=== PATIENT | female | born 1995 | race Caucasian/White ===

== ENCOUNTER 2022-09-22 21:29 | Inpatient (IN) | payer BC ==
[2022-09-22] MEDS ORDERED: LIDOCAINE 0.5% (PF) 5 MG/ML (50 ML SDV) SQ PRN (22:03)
[2022-09-22] MEDS ORDERED: TERBUTALINE 1 MG/ML VIAL SQ PRN (22:03)
[2022-09-22 22:11] LABS: Basophils % (A) 0 %; Eosinophils # (A) 0.1 k/uL (0-0.7); Eosinophils % (A) 1 %; HCT 30.8 % (34.0-46.0); HGB 10.4 gm/dL (11.4-16.0); Lymphocytes # (A) 1.7 k/uL (1.0-4.8); Lymphocytes % (A) 17 %; MCH 28.9 pg (25.0-35.0); MCHC 33.7 g/dL (31.0-37.0); MCV 85.6 fL (80.0-100.0); Monocytes # (A) 0.5 k/uL (0-1.0); Monocytes % (A) 5 %; Neutrophils # (A) 7.4 k/uL (1.3-7.7); Neutrophils % (A) 76 %; Platelet Count 242 k/uL (150-450); RDW 13.6 % (11.5-15.5); WBC 9.8 k/uL (3.8-10.6)
[2022-09-22] MEDS ORDERED: OXYTOCIN 30 UNITS/500 ML NS 30 UNIT in SALINE 1 500ML.BAG IV SCH (22:15)
[2022-09-22] MEDS: LACTATED RINGERS 1,000 ML IV SCH (22:52)
--- NOTE | 2022-09-23 01:38 | P.HPOB ---
History of Present Illness H&P Date: 09/23/22 Chief Complaint: Spontaneous rupture membranes 27-year-old presents at 39 weeks and 3 days with spontaneous rupture membranes. Her cervix was 1cm dilated, 80% effaced, -2 station. She was not fede. heart tones 140 with moderate variability and reactive. Review of Systems All systems: negative Constitutional: Denies chills, Denies fever Eyes: denies blurred vision, denies pain Ears, nose, mouth and throat: Denies headache, Denies sore throat Cardiovascular: Denies chest pain, Denies shortness of breath Respiratory: Denies cough Gastrointestinal: Denies abdominal pain, Denies diarrhea, Denies nausea, Denies vomiting Genitourinary: Denies dysuria, Denies hematuria Musculoskeletal: Denies myalgias Integumentary: Denies pruritus, Denies rash Neurological: Denies numbness, Denies weakness Psychiatric: Denies anxiety, Denies depression Endocrine: Denies fatigue, Denies weight change Past Medical History Past Medical History: No Reported History History of Any Multi-Drug Resistant Organisms: None Reported Additional Past Surgical History / Comment(s): wisdom teeth Past Anesthesia/Blood Transfusion Reactions: No Reported Reaction Past Psychological History: ADD/ADHD, Depression Smoking Status: Current every day smoker Past Drug Use History: None Reported Medications and Allergies Home Medications Medication Instructions Recorded Confirmed Type Vit No.179/Iron/Folic 1 each PO 09/22/22 History [ Tablet] Allergies Allergy/AdvReac Type Severity Reaction Status Date / Time Penicillins Allergy Unknown Verified 09/22/22 21:31 Exam Osteopathic Statement: *. No significant issues noted on an osteopathic structural exam other than those noted in the History and Physical/Consult. Vital Signs Temp Pulse Resp BP Pulse Ox 09/22/22 22:02 98.0 F 82 16 116/56 98 09/22/22 21:30 98.0 F 82 16 116/56 98 Intake and Output 09/22/22 09/22/22 09/23/22 14:59 22:59 06:59 Other: Weight 114.759 kg Heart: Regular rate and rhythm Lungs: Clear to auscultation bilaterally Abdomen: Soft, nontender Extremities: Negative Homans sign Results Result Diagrams: 09/22/22 22:07 Abnormal Lab Results - Last 24 Hours (Table) 01/30/23 Range/Units 22:07 RBC 3.60 L (3.80-5.40) m/uL Hgb 10.4 L (11.4-16.0) gm/dL Hct 30.8 L (34.0-46.0) % Assessment and Plan (1) Spontaneous rupture of membranes Current Visit: Yes Status: Acute Code(s): [id number] - SNOMED Code(s): 1 95792061 (2) 39 weeks gestation of Current Visit: Yes Status: Acute Code(s): Z3A.39 - 39 WEEKS GESTATION OF SNOMED Code(s): 91420876 Plan: 1. Admit to family place 2. Pitocin augmentation 3. Anticipate normal vaginal delivery
[2022-09-23] MEDS ORDERED: ROPIVACAINE 5 MG/ML 20 ML AMPULE ONE (02:40)
[2022-09-23] MEDS ORDERED: SODIUM CHLORIDE 0.9% 100 ML BAG ONE (02:40)
[2022-09-23] MEDS ORDERED: fentaNYL (PF) 50 MCG/ML 5 ML AMP ONE (02:40)
[2022-09-23] MEDS: LACTATED RINGERS 1,000 ML IV SCH ×4 (02:53→17:18)
[2022-09-23] MEDS ORDERED: ROPIVACAINE 100 MG, fentaNYL (PF). 200 MCG in SODIUM CHLORIDE 0.9% 76 ML EPIDURAL ONE (03:12)
[2022-09-23] MEDS ORDERED: CITRIC ACID-SODIUM CITRATE 15 ML CUP PO ONE (06:55)
[2022-09-23] MEDS ORDERED: KETOROLAC 30 MG/ML 1 ML VIAL ONE (07:40)
[2022-09-23] MEDS ORDERED: NALBUPHINE 10 MG/ML (1 ML AMP) ONE (07:40)
[2022-09-23] MEDS ORDERED: OXYTOCIN 30 UNITS/500 ML NS BAG IV ONE (07:40)
[2022-09-23] MEDS ORDERED: ONDANSETRON 4 MG/2 ML VIAL ONE (07:40)
[2022-09-23] MEDS ORDERED: MORPHINE SULFATE (PF) 0.3 MG/0.3 ML SYR ONE (07:40)
--- NOTE | 2022-09-23 08:28 | P.OP ---
Date of Procedure: 09/23/22 Preoperative Diagnosis: 1. at 39 weeks 5 days 2. category 2 heart tones 3. Meconium stained fluid Postoperative Diagnosis: same Procedure(s) Performed: primary low transverse Anesthesia: epidural Surgeon: Fany Grant [employer] Captain #1: Surjit Marquez Estimated Blood Loss (ml): 300 IV fluids (ml): 500 Urine output (ml): 200 Pathology: none sent Condition: stable Disposition: floor Indications for Procedure: 27-year-old presents at 39 weeks and 3 days with spontaneous rupture membranes. Her cervix was 1cm dilated, 80% effaced, -2 station. She was not fede. heart tones 140 with moderate variability and reactive. Augmentation was started and patient did get to 6-7 cm dilated. At this time the heart tones though they had moderate variability and repetitive decelerations down to the 90s lasting 1-2 minutes. Category II FHT managed following algorithm including initiation of corrective measure turning off the Pitocin, IV fluid bolus, position changes and oxygen administration. With the persistent presence of minimal variability and late decelerations, a patient- centered huddle was held and the need for an expedited deliver was discussed with the patient. It is our clinical recommendation to proceed with the delivery and after questions were answered to the patient agrees to proceed with the recommended plan. Operative Findings: Viable male, Apgars 9, 9, weight 6 lbs. 13 oz. (3100 g), normal uterus, tubes, ovaries. Description of Procedure: Patient was taken to the operating room where epidural anesthesia was found be adequate. She was prepped and draped in normal sterile fashion in dorsal supine position with a leftward tilt. Pfannenstiel skin incision was made the scalpel and carried through to the underlying layer of fascia with the scalpel. Fascia was incised in midline and carried bilaterally with the Mendosa scissors. The superior aspect of the fascial incision was grasped with Leonor clamps elevated and the underlying rectus muscles dissected off with the Mendosa's. Attention was then turned to inferior aspect of same incision which in a similar fashion was g rasped tented up and the underlying rectus muscles dissected off with the Mendosa's. The rectus muscles were the midline and the peritoneum was identified tented up and entered sharply with the scalpel. The incision was extended superiorly and inferiorly with good visualization of the bladder. The bladder blade was inserted and the vesicouterine peritoneum was incised the Metzenbaums then carried bilaterally and bladder flap created digitally. A low transverse incision was then made on the uterus with the scalpel. This was carried bilaterally and digital manner. Infant's head delivered atraumatically, nose and mouth bulb suctioned, cord clamped and cut, handed off to waiting nurses. Apgars 9,9, weight 6 lbs. 13 oz. Placenta delivered manually, intact with three-vessel cord. The uterus is exteriorized and cleared of all clots and debris. The uterine incision was closed with 0 Vicryl in a running locked fashion. Second layer of the same sutures used in imbricating fashion to obtain excellent hemostasis. Bladder flap was then reapproximated using 2-0 Vicryl in a running fashion. Both ovaries and tubes appeared normal. The uterus was placed back into the abdomen. The peritoneum was reapproximated using 2-0 Vicryl in a running fashion. The muscles were reapproximated using 2- 0 Vicryl in interrupted fashion. The fascia was reapproximated using 0 Vicryl in a running fashion. The subcutaneous tissues closed with 3-0 Vicryl running fashion. The skin was closed jesus. Patient tolerated the procedure well, sponge and instrument counts were correct times 2 and she was taken to the recovery room in stable condition.
[2022-09-23] MEDS ORDERED: ONDANSETRON 4 MG/2 ML VIAL IVP PRN (08:49)
[2022-09-23] MEDS ORDERED: NALBUPHINE 10 MG/ML (1 ML AMP) IV PRN (08:49)
[2022-09-23] MEDS ORDERED: MORPHINE SULFATE 2 MG/ML SYRINGE IVP PRN (08:49)
[2022-09-23] MEDS ORDERED: NALOXONE 0.4 MG/ML 1 ML VIAL IV PRN (08:49)
[2022-09-23] MEDS ORDERED: diphenhydrAMINE 50 MG/ML 1 ML VIAL IVP PRN (08:49)
[2022-09-23] MEDS ORDERED: ACETAMINOPHEN IV (For NPO) 1,000 MG in EMPTY BAG 1 BAG IVPB ONE (09:58)
[2022-09-23] MEDS: KETOROLAC 15 MG/ML 1 ML VIAL IVP PRN ×2 (14:09→20:47)
[2022-09-23] MEDS: ACETAMINOPHEN TAB 500 MG TAB PO PRN (19:07)
[2022-09-23] MEDS ORDERED: Rhogam IMMUNE GLOBULIN 1,500 UNIT/1 ML IM ONE (19:15)
[2022-09-23] MEDS: SENNOSIDES-DOCUSATE SODIUM 1 EACH TAB PO SCH (20:46)
[2022-09-24] MEDS: ACETAMINOPHEN TAB 500 MG TAB PO PRN ×4 (00:38→21:04)
[2022-09-24] MEDS: LACTATED RINGERS 1,000 ML IV SCH (00:39)
[2022-09-24] MEDS: KETOROLAC 15 MG/ML 1 ML VIAL IVP PRN (05:51)
--- NOTE | 2022-09-24 07:11 | P.PN ---
Progress Note - Text Progress Note Date: 09/24/22 Patient seen and examined at bedside POD#1 with Duramorph. Patient is resting comfortable in bed with no complications overnight. Able to resume pain management per primary team.
--- NOTE | 2022-09-24 08:15 | P.PNOBGPC ---
Subjective - Subjective Principal diagnosis: Status post primary low transverse postop day 1 Interval history: Patient seen and examined. Denies nausea, vomiting, chest pain, shortness of breath or calf pain. Patient reports: Reports appetite normal, Reports voiding normally, Reports pain well controlled, Reports ambulating normally [place]: doing well Objective - Vital Signs Latest vital signs: Vital Signs Temp Pulse Resp BP Pulse Ox 09/24/22 07:40 97.8 F 79 16 115/71 97 09/24/22 04:00 97.3 F L 73 16 98/63 09/24/22 00:00 98.3 F 63 16 93/63 09/23/22 20:00 97.9 F 64 16 116/67 09/23/22 16:00 98.1 F 76 18 113/67 95 09/23/22 14:00 98 09/23/22 13:00 16 09/23/22 11:44 98.6 F 70 17 122/69 09/23/22 10:20 67 16 120/64 99 09/23/22 10:00 63 16 140/67 99 09/23/22 09:20 62 16 136/68 97 09/23/22 09:05 77 16 122/87 97 09/23/22 08:50 70 16 117/58 99 09/23/22 08:35 69 16 127/67 99 09/23/22 08:20 97.9 F 89 16 127/63 100 Intake and Output 09/23/22 09/24/22 09/24/22 22:59 06:59 14:59 Output Total 400 1500 Balance -400 -1500 Output: Urine 400 1500 Uretheral ([place]) 350 1200 Other: Voiding Method Indwelling Catheter - Exam Lungs: bilateral: normal Chest: Normal S1, Normal S2 Extremities: Present: normal Abdomen: Present: normal appearance, soft. Absent: distention, tenderness Incision: Present: normal, dry, intact Uterus: Present: normal, firm Assessment and Plan (1) Spontaneous rupture of membranes Current Visit: Yes Status: Resolved Code(s): YGA1611 - SNOMED Code(s): 501072582 (2) 39 weeks gestation of Current Visit: Yes Status: Resolved Code(s): Z3A.39 - 39 WEEKS GESTATION OF SNOMED Code(s): 55593138 (3) Status post primary low transverse section Current Visit: Yes Status: Acute Code(s): Z98.891 - HISTORY OF UTERINE SCAR FROM PREVIOUS SURGERY SNOMED Code(s): 116094323 Plan: 1. Increase ambulation 2. Regular diet 3. Continue oral pain medication
--- NOTE | 2022-09-24 08:20 | P.MSEPDOC ---
Presenting Problems - Arrival Data Date of Arrival on Unit: 09/22/22 Time of Arrival on Unit: 21:30 Mode of Transport: Bed - Complaint OB-Reason for Admission/Chief Complaint: Rule Out SROM Medical History - Information : 3 Para: 0 Term: 0 : 0 Abortions: Spontaneous or Elective: 2 Number of Living Children: 0 - Gestational Age Gestational Age by SAMIA (wks/days): 39 Weeks and 4 Days - History Complications: Smoker Comment: vape Review of Systems - Review of Systems Constitutional: No problems Breast: No problems ENT: No problems Cardiovascular: No problems Respiratory: No problems Gastrointestinal: No problems Genitourinary: No problems Musculoskeletal: No problems Neurological: No problems Skin: No problems Vital Signs - Temperature Temperature: 97.8 F Temperature Source: Oral - Pulse Right Brachial Pulse Rate: 79 Pulse Assessment Method: Pulse Oximetry - Respirations Respiratory Rate: 16 Oxygen Delivery Method: Room Air O2 Sat by Pulse Oximetry: 97 - Blood Pressure Right Arm Blood Pressure: 115/71 Blood Pressure Mean: 85 Blood Pressure Source: Automatic Cuff Medical Screen Scoring - Cervical Exam Dilation (cm): 2 Effacement (%): 70 Station: -2 Membranes: Ruptured - Uterine Contractions Frequency From (mins): 0 Frequency To (mins): 0 Duration From (seconds): 0 Duration To (seconds): 0 - Assessment - Baby A Baseline FHR: 140 Heart Rate - NICHD Category: Category I (Normal) NST: Reactive Physician Notification - Physician Notified Physician Notified Date: 09/22/22 Physician Notified Time: 21:51 Physician: Fany Grant New Order Received: Yes - Notification Comment Comment: Patient SROM at 2030 clear fluid, positive amnisure. Dialated to /- 2. Pateint denies pain, no contractions noted. GBS - Patient admitted to unit following labor protocol, pitocin to be started. Maternal Triage Index - Maternal Triage Index Presenting for scheduled procedure w/no complaint: No - Stat/Priority 1 Stat Priority 1: No - Urgent/Priority 2 Urgent Priority 2: No - Prompt/Priority 3 Prompt Priority 3: No - Non-Urgent/Priority 4 Non-Urgent Priority 4: Yes Criteria Met for Priority 4: ROM at 2030, positive amnisure. Disposition - Disposition OB Disposition: Admit Discharge Date: 09/22/22 Discharge Time: 21:51 I agree with the RN Medical Screening Exam: Yes Case reviewed; plan agreed upon as documented in EMR&OBIX.: Yes Diagnosis: ENCOUNTER FOR FULL-TERM UNCOMPLICATED DELIVERY
[2022-09-24] MEDS: SENNOSIDES-DOCUSATE SODIUM 1 EACH TAB PO SCH ×2 (08:38→21:04)
[2022-09-24] MEDS: IBUPROFEN 600 MG TAB PO PRN ×2 (09:51→18:09)
[2022-09-25] MEDS: IBUPROFEN 600 MG TAB PO PRN ×3 (00:29→13:33)
[2022-09-25] MEDS: ACETAMINOPHEN TAB 500 MG TAB PO PRN ×2 (04:16→09:59)
[2022-09-25 07:58] VITALS: BP 125/70; PULSE 64; RESP 18; TEMP 98.6
--- NOTE | 2022-09-25 09:00 | P.DS ---
Providers Date of admission: 09/22/22 21:51 Expected date of discharge: 09/25/22 Attending physician: Fany Grant Primary care physician: Stated None - Discharge Diagnosis(es) (1) Spontaneous rupture of membranes Current Visit: Yes Status: Resolved (2) 39 weeks gestation of Current Visit: Yes Status: Resolved (3) Status post primary low transverse section Current Visit: Yes Status: Acute Hospital Course: Patient presented with spontaneous rupture of membranes. She had Pitocin augmentation and underwent a primary low transverse for category 2 heart tones. Postoperative course was uneventful. She denies nausea, vomiting, chest pain, shortness of breath or calf pain. She is tolerating regular diet and passing flatus. Her bleeding is minimal and her pain is controlled. She'll be discharged home postoperative day #2 in stable condition to follow-up with me in 6 weeks. Plan - Discharge Summary Discharge Rx Participant: Yes New Discharge Prescriptions: New oxyCODONE HCL [OxyIR] 5 mg PO Q4H PRN #18 tab PRN Reason: Moderate Pain (Scale 4 To 6) Ibuprofen [Motrin] 600 mg PO Q6H PRN #30 tab PRN Reason: Mild Pain No Action Vit No.179/Iron/Folic [ Tablet] 1 each PO Discharge Medication List Vit No.179/Iron/Folic [ Tablet] 1 each PO 09/22/22 [History] Ibuprofen [Motrin] 600 mg PO Q6H PRN #30 tab 09/25/22 [Rx] oxyCODONE HCL [OxyIR] 5 mg PO Q4H PRN #18 tab 09/25/22 [Rx] Follow up Appointment(s)/Referral(s): Fany Grant DO [Doctor of Osteopathic Medicine] - 11/05/22 3:45 pm (Post Op Appointment 09-30-2022 @ 1:30p.m.) Discharge Disposition: HOME SELF-CARE
[2022-09-25] MEDS: SENNOSIDES-DOCUSATE SODIUM 1 EACH TAB PO SCH (10:49)
== END 2022-09-25 13:35 | disposition home or self-care (01) | DRG 788 ==
LOC: FBPOP 21:29 → 4FBP 21:51
PROVIDERS: ADMIT Obstetrics & Gynecology; ATTEND Obstetrics & Gynecology
PROC: 10D00Z1 Extraction of Products of Conception, Low, Open Approach (ICD-10-PCS; principal; 2022-09-23 07:30)
PROC: 3E0234Z Introduction of Serum, Toxoid and Vaccine into Muscle, Percutaneous Approach (ICD-10-PCS; principal; 2022-09-23 07:30)
DX: O42.02 Full-term premature rupture of membranes, onset of labor within 24 hours of rupture (principal); O76 Abnormality in fetal heart rate and rhythm complicating labor and delivery; O26.893 Other specified pregnancy related conditions, third trimester; Z67.11 Type A blood, Rh negative; O77.0 Labor and delivery complicated by meconium in amniotic fluid; O99.344 Other mental disorders complicating childbirth; F90.9 Attention-deficit hyperactivity disorder, unspecified type; F32.A Depression, unspecified; O99.334 Smoking (tobacco) complicating childbirth; F17.200 Nicotine dependence, unspecified, uncomplicated; Z88.0 Allergy status to penicillin; Z28.310 Unvaccinated for COVID-19; Z3A.39 39 weeks gestation of pregnancy; Z37.0 Single live birth
CPT/HCPCS: 84112; 85025; 85461; 86850; 86870; 86880; 86900; 86901; 99213